=== PATIENT | male | born 1985 | race African-American/Black ===

== ENCOUNTER 2017-09-18 19:57 | Emergency (ER) | payer MEDICARE, MEDICAID ==
[~2017-09-18] VITALS: Ht 185.4 cm; Wt 98.0 kg
[2017-09-18 20:08] VITALS: BP 143/81
== END 2017-09-18 22:00 | disposition left against medical advice (07) ==
LOC: ER 19:57
DX: K13.79 Other lesions of oral mucosa (principal); Z53.21 Procedure and treatment not carried out due to patient leaving prior to being seen by health care provider

== ENCOUNTER 2021-10-17 03:16 | Emergency (ER) | payer OTHER ==
[~2021-10-17] VITALS: Ht 185.4 cm; Wt 100.0 kg
[2021-10-17 03:33] VITALS: BP 132/83
[2021-10-17] MEDS ORDERED: AMOX-494 MT (08:19)
== END 2021-10-17 11:22 | disposition home or self-care (01) ==
LOC: ER 03:16
DX: J32.9 Chronic sinusitis, unspecified (principal); Z20.822 Contact with and (suspected) exposure to COVID-19
CPT/HCPCS: 71045; 86703; 87426; 87804; 99284; C9803